=== PATIENT | female | born 1960 | race Caucasian/White ===

== ENCOUNTER 2018-11-26 11:28 | Observation (INO) ==
[2018-11-26] MEDS ORDERED: Isovue-370 500 ML BOTTLE IVP ONE (11:36)
[2018-11-26] MEDS ORDERED: Ketorolac 15 MG/ML VIAL IVP ONE (11:36)
[2018-11-26] MEDS ORDERED: *HR* LORazepam 2 MG/ML VIAL IVP ONE (11:36)
[2018-11-26] MEDS ORDERED: 0.9 % Sodium Chloride 1,000 ML IVC ONE ×2 (11:36→14:23)
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
[2018-11-26 12:15] LABS: Basophils % 0.3 %; Hematocrit 43.4 % (35.3-44.9); Hemoglobin 14.5 g/dL (11.5-15.4); Immature Granulocytes % 0.4 % (0-4); Lymphocytes # 1.2 K/mcL (0.6-4.6); Lymphocytes % 8.3 %; Mean Corpuscular HGB Conc 33.4 g/dL (31.6-35.5); Mean Corpuscular Hemoglobin 29.2 pg (28.0-33.3); Mean Corpuscular Volume 87.3 fL (83.0-100.0); Mean Platelet Volume 10.2 fL (9.4-12.4); Monocytes # 0.3 K/mcL (0.0-1.3); Monocytes % 1.8 %; Neutrophils # 12.7 K/mcL (1.6-8.9); Platelet Count 284 K/mcL (140-400); Red Blood Count 4.97 M/mcL (3.82-4.97); Red Cell Distribution Width 13.6 % (11.5-14.5); Segmented Neutrophils % 89.2 %; White Blood Count 14.2 K/mcL (4.3-11.1)
[2018-11-26] MEDS ORDERED: Ziprasidone 20 MG in Water for inj. (sterile) 1 ML IM ONE (12:17)
[2018-11-26 12:40] LABS: Alanine Aminotransferase 14 Units/L (7-52); Albumin 4.8 g/dL (3.5-5.7); Albumin/Globulin Ratio 1.7 (1.1-2.2); Alkaline Phosphatase 87 Units/L (34-104); Aspartate Amino Transferase 16 Units/L (13-39); BUN/Creatinine Ratio 20 (6-26); Bilirubin,Direct 0.2 mg/dL (0.0-0.2); Bilirubin,Indirect 0.4 mg/dL (0.0-1.2); Bilirubin,Total 0.6 mg/dL (0.3-1.0); Blood Urea Nitrogen 16 mg/dL (6-20); Calcium 10.3 mg/dL (8.6-10.3); Carbon Dioxide 20 mEq/L (23-29); Chloride 107 mEq/L (98-107); Globulin 2.8 g/dL (2.4-3.5); Glucose 138 mg/dL (70-105); Lipase 12 Units/L (11-82); Osmolality,Calculated 299 (280-300); Potassium 3.7 mEq/L (3.5-5.1); Sodium 143 mEq/L (136-145); Total Protein 7.6 g/dL (6.4-8.9); eGFR For African Americans > 60 (> 60); eGFR For Non-African Americans > 60 (> 60)
[2018-11-26] MEDS ORDERED: Famotidine 20 MG/2 ML VIAL IVP ONE (13:29)
[2018-11-26] MEDS ORDERED: Ondansetron 4 MG/2 ML VIAL IVP ONE (13:29)
[2018-11-26 13:48] LABS: INR 1.1; Prothrombin Time 12.6 Seconds (9.4-12.1)
[2018-11-26] MEDS ORDERED: MetroNIDAZOLE 500 MG/100 ML 500 MG/100 ML BAG IVPB ONE (13:59)
[2018-11-26 14:32] LABS: Bilirubin,Urine Negative (Negative); Blood,Urine Moderate (Negative); Clarity,Urine Clear (Clear); Color,Urine Yellow (Yellow); Glucose,Urine (UA) Normal (Normal); Ketones,Urine 40 mg/dL (Negative); Leukocyte Esterase,Urine Negative (Negative); Nitrite,Urine Negative (Negative); PH,Urine 7.5 pH Units (5.0-8.0); Protein,Urine Trace mg/dL (Neg-Trace); Specific Gravity,Urine > 1.030 (1.010-1.025); Urobilinogen,Urine Normal (Normal)
[2018-11-26 14:37] LABS: Bacteria,Urine Many per hpf (None-Few); Hyaline Casts,Urine None Seen per lpf (None-Few); Squamous Epithelial Cell,Urine Many per lpf (None-Few)
[2018-11-26 15:00] LABS: Amphetamine Screen,Urine Negative ng/mL (Cutoff=1000); Barbiturate Screen,Urine Negative ng/mL (Cutoff=200); Benzodiazepines Screen,Urine Negative ng/mL (Cutoff=200); Cannabinoid Screen,Urine Positive ng/mL (Cutoff = 50); Cocaine Screen,Urine Positive ng/mL (Cutoff= 300); Opiate Screen,Urine Negative ng/mL (Cutoff=300); Phencyclidine Screen,Urine Negative ng/mL (Cutoff=25)
[2018-11-26] MEDS ORDERED: Naloxone 0.4 MG/ML INJ IVP PRN (15:03)
[2018-11-26] MEDS ORDERED: Ondansetron ODT 4 MG TAB.RAPDIS SL PRN (15:03)
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
[2018-11-26] MEDS: MetroNIDAZOLE 500 MG/100 ML 500 MG/100 ML BAG IVPB SCH (16:16)
[2018-11-26] MEDS: 0.9 % Sodium Chloride 1,000 ML IVC SCH (16:31)
[2018-11-26] MEDS: Pantoprazole 40 MG VIAL IVP SCH (18:41)
[2018-11-26] MEDS ORDERED: Methyl Salicylate/Menthol 28 GM TUBE TP PRN (21:57)
[2018-11-26] MEDS ORDERED: Methyl Salicylate/Menthol 57 APPL/57 GM TUBE TP PRN (22:04)
[2018-11-27] MEDS: MetroNIDAZOLE 500 MG/100 ML 500 MG/100 ML BAG IVPB SCH ×4 (00:07→23:51)
[2018-11-27 00:45] LABS: Basophils % 0.3 %; Hematocrit 41.3 % (35.3-44.9); Hemoglobin 13.7 g/dL (11.5-15.4); Immature Granulocytes % 0.4 % (0-4); Lymphocytes # 1.9 K/mcL (0.6-4.6); Lymphocytes % 16.3 %; Mean Corpuscular HGB Conc 33.2 g/dL (31.6-35.5); Mean Corpuscular Hemoglobin 28.8 pg (28.0-33.3); Mean Corpuscular Volume 86.9 fL (83.0-100.0); Mean Platelet Volume 10.5 fL (9.4-12.4); Monocytes # 1.1 K/mcL (0.0-1.3); Monocytes % 9.1 %; Neutrophils # 8.6 K/mcL (1.6-8.9); Platelet Count 269 K/mcL (140-400); Red Blood Count 4.75 M/mcL (3.82-4.97); Red Cell Distribution Width 13.8 % (11.5-14.5); Segmented Neutrophils % 73.9 %; White Blood Count 11.6 K/mcL (4.3-11.1)
[2018-11-27 00:56] LABS: BUN/Creatinine Ratio 16 (6-26); Blood Urea Nitrogen 14 mg/dL (6-20); Calcium 8.9 mg/dL (8.6-10.3); Carbon Dioxide 19 mEq/L (23-29); Chloride 106 mEq/L (98-107); Glucose 96 mg/dL (70-105); Magnesium 1.5 mg/dL (1.6-2.6); Osmolality,Calculated 292 (280-300); Potassium 3.6 mEq/L (3.5-5.1); Sodium 141 mEq/L (136-145); eGFR For African Americans > 60 (> 60); eGFR For Non-African Americans > 60 (> 60)
[2018-11-27] MEDS: Pantoprazole 40 MG VIAL IVP SCH ×2 (08:09→17:39)
[2018-11-27] MEDS: 0.9 % Sodium Chloride 1,000 ML IVC SCH (08:10)
[2018-11-27] MEDS ORDERED: Pantoprazole 40 MG VIAL IVP SCH (09:00)
--- NOTE | 2018-11-27 09:38 | Internal Med Progress Note ---
<Dinesh Jauregui - Last Filed: 11/27/18 13:40> Hospitalist Progress Note - Encounter Date of Encounter: 11/27/18 Time of Encounter: 09:50 - Subjective Interval History: Patient feels much better today. Has not had further episodes of nausea or vomiting or hematemesis. Continues to have mild lower quadrant abdominal pain. Feels very hungry. Has been nothing by mouth overnight. - Exam Vitals: Temp Pulse Resp BP Pulse Ox 98.6 F 70 18 136/82 99 11/27/18 11:41 11/27/18 11:41 11/27/18 11:41 11/27/18 11:41 11/27/18 11:41 Exam: General: Patient is alert, no acute distress, oriented x 3 Respiratory: Good respiratory effort. Normal breath sounds. No wheezing or crackles. Cardiovascular: Regular rate and rhythm. s1 and s2 normal No clicks, rubs, gallops, or murmurs. No pedal edema Abdomen: Abdomen is soft, mild lower abdominal tenderness. Bowel sounds are present Musculoskeletal: Spontaneously moving all extremities Skin: warm, dry, intact. Neuro: Alert oriented x 3 normal cranial nerves, no focal deficits - Assessment and Plan (1) Colitis Current Visit: Yes Status: Acute (2) Leukocytosis Current Visit: Yes Status: Acute (3) Coffee ground emesis Current Visit: Yes Status: Acute (4) DVT prophylaxis Current Visit: No Status: Acute - Time Spent with Patient Total time spent is greater than 50% in coordination of care (as documented) at patient's floor/unit and/or counseling patient: Internal Medicine: Result - Labs CBC & Chem 7: 11/27/18 00:25 11/27/18 00:25 Labs: Short CBC 11/27/18 Range/Units 00:25 WBC 11.6 H (4.3-11.1) K/mcL Hgb 13.7 (11.5-15.4) g/dL Hct 41.3 (35.3-44.9) % Plt Count 269 (140-400) K/mcL Neutrophils # 8.6 (1.6-8.9) K/mcL BMP 11/27/18 00:25 Sodium 141 Potassium 3.6 Chloride 106 Carbon Dioxide 19 L BUN 14 Creatinine 0.88 Glucose 96 Calcium 8.9 Urine 11/26/18 Range/Units 14:22 Urine Color Yellow (Yellow) Urine Clarity Clear (Clear) Urine pH 7.5 (5.0-8.0) pH Units Ur Specific [place] > 1.030 H (1.010-1.025) Urine Protein Trace (Neg-Trace) mg/dL Urine Glucose (UA) Normal (Normal) mg/dL - ABG Interpretation ABG results: PT/INR, D-dimer PT 12.6 Seconds (9.4-12.1) H 11/26/18 12:00 - Impressions Impressions Abdomen/Pelvis CT 11/26/18 11:36 IMPRESSION: Mild diffuse colonic wall thickening and mild pericolonic soft tissue stranding suggest colitis which may be infectious or inflammatory in etiology. D/ / 11/26/2018 13:49:05 Keith Saavedra MD / evelyn Interpreting Provider: Keith Saavedra MD Consult Discharge Plan - Plan [facility]errals: [facility] [Primary Care Provider] - - Attending Attestation I saw evaluated and examined this patient and reviewed objective data including labs and my medical decision-making was reviewed with the medical student. I agree with the documented findings, disposition and treatment plan as described except to any changes set forth below. We independently had [id number] contact with the patient. Acute hematemesis: Patient had an episode of acute hematemesis with coffee- ground emesis last night. Improved now. Continue IV PPI. Surgery consult. Started Carafate. Start clear liquid diet as tolerated. If symptoms recur, plan for EGD tomorrow. Acute colitis: Continue Cipro and Flagyl. Moderate risk for complications. <Edson Page R - Last Filed: 11/27/18 15:41> Hospitalist Progress Note - Encounter Date of Encounter: 11/27/18 Time of Encounter: 09:00 - Subjective Interval History: Ms. Barriga is a 57F presenting with nausea, vomiting, and diarrhea which began on Sunday. The abdominal pain is located in the RLQ with no known exacerbating or relieving factors. Has had this discomfort since july and has been taking gabapentin and ibuprofen twice a day. 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 Seen and examined at bedside. Denies pain now. Denies any fever, chills, chest pain, nausea, vomiting, dysuria, constipation, diarrhea, lightheadedness. NPO and Full code. - Exam Vitals: Temp Pulse Resp BP Pulse Ox 98 F 72 18 120/73 99 11/27/18 08:06 11/27/18 08:06 11/27/18 08:06 11/27/18 08:06 11/27/18 08:06 Exam: Gen: AOx3 in no acute distress Eyes: NIR, EOMI, with no scleral icterus or conjunctivitis Throat: Moist mucous membranes, without tonsilar exudate or pharyngeal erythema CV: RRR with no murmurs Resp: CTA in all lung panchal with no wheeze or rhales GI: Soft, non-tender abdomen. Discomfort in the RLQ on palpation that doesn't radiate. No fluid wave present, or organomegaly on palpation. Neuro: CN II-XII intact with no foal deficits. Strength in Maikel UE and LE 4/5 Ext: DP 2/4 maikel. No evidence of LE edema maikel. Derm: No rashes, pallor or cyanosis visualized on exam - Assessment and Plan (1) Colitis Current Visit: Yes Status: Acute Assessment and Plan: -Patient reports Nausea, vomiting, and abdominal pain in the RLQ since July for which she has been taking Ibuprofen twice a day and gabapentin -Associated diarrhea beginning on Sunday. 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 No biliary duct dilatation. Normal gallbladder. Spleen, adrenal glands, and pancreas are normal. Kidneys are symmetric in size and enhancement.No hydronephrosis. Stomach, small bowel, and colon are nondilated. Normal appendix. Mild diffuse colonic wall thickening and mild pericolonic soft tissue stranding. Urinary bladder is unremarkable. Uterus is surgically absent. No free fluid in the pelvis. Mild aortoiliac ather osclerotic calcification. Abdominal aorta is normal in caliber. No abdominal or retroperitoneal adenopathy. No free fluid in the abdomen. Plan: - Gen surgery cosulted - Awaiting GI panel - Mange pain with oxycodone 5 mg SL Q4 Cont 500 mg Metronidazole Q8 and Ciprofloxacin 400 mg IV Q12 - Cont zofran 4 mg IV Q8 (2) Coffee ground emesis Current Visit: Yes Status: Acute Assessment and Plan: -One epidode of vomitting up coffee ground emesis in the ER - Has been taking ibuprofen for past few months for abdominal pain. Denies any drug use despite postivie drug panel. Denies alcohol use. Plan: -Continue protonix -If symptoms persist to the morning will have EGD performed - - (3) Hypomagnesemia Current Visit: Yes Status: Acute Assessment and Plan: -Corrected Magnesium 1.68 - On protonix Plan: -correct and Replace IV (4) Leukocytosis Current Visit: Yes Status: Acute Assessment and Plan: -WBC count 11.6 today down from 14.2 on 11/26 - Likely 2/2 colitis - UA on 11/26 positive for many bacteria, WBC 3-5, moderate blood, and 40 Ketones. However asymptomatic. - Urine sent for culture Plan: - Cont to monitor CBC and vital signs -Cont to monitor kidney function and urine output -Cont ABX as above - Time Spent with Patient Total time spent is greater than 50% in coordination of care (as documented) at patient's floor/unit and/or counseling patient: Plan of Care Discussed with: patient Internal Medicine: Result - Labs CBC & Chem 7: 11/27/18 00:25 11/27/18 00:25 Labs: Short CBC 11/26/18 11/27/18 Range/Units 12:00 00:25 WBC 14.2 H 11.6 H (4.3-11.1) K/mcL Hgb 14.5 13.7 (11.5-15.4) g/dL Hct 43.4 41.3 (35.3-44.9) % Plt Count 284 269 (140-400) K/mcL Neutrophils # 12.7 H 8.6 (1.6-8.9) K/mcL BMP 11/26/18 11/27/18 12:00 00:25 Sodium 143 141 Potassium 3.7 3.6 Chloride 107 106 Carbon Dioxide 20 L 19 L BUN 16 14 Creatinine 0.81 0.88 Glucose 138 H 96 Calcium 10.3 8.9 Liver Function 11/26/18 Range/Units 12:00 Total Bilirubin 0.6 (0.3-1.0) mg/dL Direct Bilirubin 0.2 (0.0-0.2) mg/dL AST 16 (13-39) Units/L ALT 14 (7-52) Units/L Alkaline Phosphatase 87 (34-104) Units/L Albumin 4.8 (3.5-5.7) g/dL Urine 11/26/18 Range/Units 14:22 Urine Color Yellow (Yellow) Urine Clarity Clear (Clear) Urine pH 7.5 (5.0-8.0) pH Units Ur Specific [place] > 1.030 H (1.010-1.025) Urine Protein Trace (Neg-Trace) mg/dL Urine Glucose (UA) Normal (Normal) mg/dL - ABG Interpretation ABG results: PT/INR, D-dimer PT 12.6 Seconds (9.4-12.1) H 11/26/18 12:00 - Impressions Impressions Abdomen/Pelvis CT 11/26/18 11:36 IMPRESSION: Mild diffuse colonic wall thickening and mild pericolonic soft tissue stranding suggest colitis which may be infectious or inflammatory in etiology. D/ / 11/26/2018 13:49:05 Keith Saavedra MD / evelyn Interpreting Provider: Keith Saavedra MD <Dinesh Jauregui - Last Filed: 11/27/18 13:40> (2) Leukocytosis Qualifiers: Leukocytosis type: unspecified Qualified Code(s): D72.829 - Elevated white blood cell count, unspecified <Edson Page - Last Filed: 11/27/18 15:41> (4) Leukocytosis Qualifiers: Leukocytosis type: unspecified Qualified Code(s): D72.829 - Elevated white blood cell count, unspecified
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
[2018-11-27] MEDS ORDERED: Sucralfate 1 GM TABLET PO SCH (16:30)
--- NOTE | 2018-11-27 18:49 | Anesthesia Evaluation PreOp ---
Date of Encounter: 11/27/18 Time of Encounter: 18:47 - Past History Planned Operation: EGD Cardiac History: Denies any Significant Hx Pulmonary History: Smoker (30 years) [employer] History: Other (sciatica) Other Medical History: Other (anxiety/depression) Anesthesia History: No Prior Anesthetic Complications, Past Anesthesia Alcohol Use: none Drug use: cocaine (quit 5 years ago), marijuana Medications and Allergies No Known Home Drugs 11/26/18 [History] Allergy/AdvReac Type Severity Reaction Status Date / Time No Known Allergies Allergy Verified 05/02/18 13:05 - Meds/Allergy Pre-op Review Medications Reviewed: Yes Allergies Reviewed: Yes Beta Blockers on Current Med List: No Anesthesia Results - Labs 11/27/18 00:25 11/27/18 00:25 - Imaging EKG: report reviewed (07/29/2017 SINUS RHYTHM) Anesthesia Exam Vital Signs/O2 Sat/Glucose, Most Recent Temp Pulse Resp BP Pulse Ox 98.2 F 74 15 141/79 97 11/27/18 15:35 11/27/18 15:35 11/27/18 15:35 11/27/18 15:35 11/27/18 15:35 Blood Glucose* 86 Height: 5'5''/1.65m Weight: 140 lbs/63.5 kg NPO (# of Hours): 8 Pain Scale: 0 Pain Scale Used: Numeric (1 - 10) - HEENT Pupil (Motor): EOMI Mallampati: III Teeth: Normal Oral Opening: Greater than 3 - [employer] LOC: Oriented [employer] Motor: Normal RUE, Normal LUE, Normal RLE, Normal LLE, Normal Face [employer] Sensory: Normal: RUE, LUE, RLE, LLE, Face - Cardiac Rhythm: Regular Murmur: None - Pulmonary Breath Sounds: bilateral Clear Respiratory Effort: Symmetrical Anesthesia Assess/Plan ASA Score: 2 Level of consciousness: Cooperative, Oriented, Tranquil Anesthetic Plan: MAC Monitoring Plan: Standard Monitors
[2018-11-27] MEDS ORDERED: *HR* Propofol 200 MG/20 ML VIAL IVP ONE ×2 (19:22→19:33)
[2018-11-27] MEDS ORDERED: Lidocaine -MPF 2% 2 ML VIAL ONE (19:39)
[2018-11-27] MEDS ORDERED: Naloxone 0.4 MG/ML INJ IVP PRN (20:48)
[2018-11-27] MEDS ORDERED: Ondansetron ODT 4 MG TAB.RAPDIS SL PRN (20:48)
[2018-11-27] MEDS: Sucralfate 1 GM TABLET PO SCH (22:10)
[2018-11-27] MEDS: Methyl Salicylate/Menthol 57 APPL/57 GM TUBE TP PRN (22:14)
[2018-11-28] MEDS: Methyl Salicylate/Menthol 57 APPL/57 GM TUBE TP PRN (05:09)
[2018-11-28 05:14] LABS: Basophils % 0.5 %; Eosinophils % 0.4 %; Hematocrit 37.7 % (35.3-44.9); Hemoglobin 12.6 g/dL (11.5-15.4); Immature Granulocytes % 0.2 % (0-4); Lymphocytes % 35.9 %; Mean Corpuscular HGB Conc 33.4 g/dL (31.6-35.5); Mean Corpuscular Hemoglobin 29.8 pg (28.0-33.3); Mean Corpuscular Volume 89.1 fL (83.0-100.0); Mean Platelet Volume 10.8 fL (9.4-12.4); Monocytes # 0.7 K/mcL (0.0-1.3); Monocytes % 8.1 %; Neutrophils # 4.5 K/mcL (1.6-8.9); Platelet Count 223 K/mcL (140-400); Red Blood Count 4.23 M/mcL (3.82-4.97); Red Cell Distribution Width 13.8 % (11.5-14.5); Segmented Neutrophils % 54.9 %; White Blood Count 8.3 K/mcL (4.3-11.1)
[2018-11-28 05:32] LABS: BUN/Creatinine Ratio 19 (6-26); Blood Urea Nitrogen 17 mg/dL (6-20); Calcium 8.4 mg/dL (8.6-10.3); Carbon Dioxide 24 mEq/L (23-29); Chloride 105 mEq/L (98-107); Glucose 80 mg/dL (70-105); Osmolality,Calculated 287 (280-300); Potassium 3.4 mEq/L (3.5-5.1); Sodium 138 mEq/L (136-145); eGFR For African Americans > 60 (> 60); eGFR For Non-African Americans > 60 (> 60)
[2018-11-28] MEDS ORDERED: Pantoprazole 40 MG VIAL IVP SCH (06:00)
[2018-11-28] MEDS: MetroNIDAZOLE 500 MG/100 ML 500 MG/100 ML BAG IVPB SCH (07:41)
[2018-11-28] MEDS: Sucralfate 1 GM TABLET PO SCH ×2 (07:41→12:20)
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
[2018-11-28 11:01] VITALS: BP 158/89
--- NOTE | 2018-11-28 11:40 | Discharge Summary ---
<Queenie Ware E - Last Filed: 11/28/18 11:37> - NOTES TO OUTPATIENT PROVIDER Notes to Outpatient Provider: Patient would like referral to Pain management in [place] for Siatica, [facility] for [facility]opathic manipulation for this as well. Orders not resulted at time of discharge: Pending orders 11/27/18 H. pylori Urease Culture [RM] Routine 11/27/18 19:42 Surgical Pathology [PTH] Routine Date of Encounter: 11/28/18 Time of Encounter: 08:30 - Discharge Diagnosis (1) Colitis Priority: Primary Status: Acute Assessment and Plan: -Patient reports Nausea, vomiting, and abdominal pain in the RLQ since July for which she has been taking Ibuprofen twice a day and gabapentin associated diarrhea which started on Sunday. She has not had any continued diarrhea. 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 No biliary duct dilatation. Normal gallbladder. Spleen, adrenal glands, and pancreas are normal. Kidneys are symmetric in size and enhancement.No hydronephrosis. Stomach, small bowel, and colon are nondilated. Normal appendix. Mild diffuse colonic wall thickening and mild pericolonic soft tissue stranding. Urinary bladder is unremarkable. Uterus is surgically absent. No free fluid in the pelvis. Mild aortoiliac atherosclerotic calcification. Abdominal aorta is normal in caliber. No abdominal or retroperitoneal adenopathy. No free fluid in the abdomen. Patient to follow-up for colonoscopy with GI Continue Flagyl and Cipro orally for colitis (2) Leukocytosis Priority: Secondary Status: Acute Assessment and Plan: White blood cell count 8.3 which has been decreased from 11.6 on admission, likely due to colitis although urinalysis on the third showed positive bacteria, white blood cell count 3-5, moderate blood, 40 ketones. Patient continues to be asymptomatic. This will be cultured as well. This should be covered by patient's antibiotics given for colitis. Qualifiers: Leukocytosis type: unspecified Qualified Code(s): D72.829 - Elevated white blood cell count, unspecified (3) Coffee ground emesis Priority: Primary Status: Acute Assessment and Plan: Upper endoscopy was performed yesterday showing normal esophagus, duodenum, stomach. Biopsies taken for H. pylori. GI follow-up (4) Hypomagnesemia Priority: Secondary Status: Acute Assessment and Plan: Patient's corrected magnesium 1.68 on the fourth, currently on Protonix, corrected replaced magnesium on the fourth Hospital course: Ms. 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 CT Scan on 11/26 shows Liver is normal in morphology. No biliary duct dilatation. Normal gallbladder. Spleen, adrenal glands, and pancreas are normal. Kidneys are symmetric in size and enhancement.No hydronephrosis. Stomach, small bowel, and colon are nondilated. Normal appendix. Mild diffuse colonic wall thickening and mild pericolonic soft tissue stranding. Urinary bladder is unremarkable. Uterus is surgically absent. No free fluid in the pelvis. Mild aortoiliac atherosclerotic calcification. Abdominal aorta is normal in caliber. No abdominal or retroperitoneal adenopathy. No free fluid in the abdomen. had EGD which showed normal gastric mucosa biopsies were taken to rule out H. pylori. Patient will be sent home on Cipro and Flagyl for colitis as well as coverage for possible UTI. Patient to follow-up with her PCP in the next week Discharge discussed with: patient - Time Spent with Patient Total time spent providing and/or coordinating discharge services: - Discharge Medications Prescriptions: New Ciprofloxacin [Cipro] 500 mg PO BID #16 tablet metroNIDAZOLE [Flagyl] 250 mg PO TID #24 tablet Omeprazole Magnesium 20 mg PO DAILY #30 capsule. Home Medications: Ciprofloxacin [Cipro] 500 mg PO BID #16 tablet 11/28/18 [Rx] Omeprazole Magnesium 20 mg PO DAILY #30 capsule. 11/28/18 [Rx] metroNIDAZOLE [Flagyl] 250 mg PO TID #24 tablet 11/28/18 [Rx] Allergies/Adverse Reactions: Allergy/AdvReac Type Severity Reaction Status Date / Time No Known Allergies Allergy Verified 05/02/18 13:05 Date of admission: 11/26/18 15:07 [facility] physician[facility] Consults: 11/26/18 18:35 Consult to Subject Scientific Research [CONS] Routine Reason for Consult: Positive cocaine drug screen 11/27/18 09:07 Consult to Surgery [CONS] Routine Consulting Provider: Acute Care Surgery Reason for Consult: ab pain/n/v 300mL coffee ground emesis. 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 Call Completed: Yes Discharging clinician: Dinesh Jauregui Anticipated date of discharge: 11/28/18 - Constitutional Vitals: Temp Pulse Resp BP Pulse Ox 98.3 F 67 16 158/89 100 11/28/18 11:00 11/28/18 11:00 11/28/18 11:00 11/28/18 11:00 11/28/18 11:00 General appearance: Present: A&O X 1 (Groggy ) Exam: General: AAO 3, answers questions appropriately, no acute distress Head: normocephalic, atraumatic Eyes: NIR, no icterus Cardio: RRR, no murmurs, rubs, or gallops Respiratory: CTAB, no wheezing, rhonchi, rales Abd: normal bowel sounds, no guarding or rigidity Extremities: no pedal edema, pulses equal bilaterally, warm Skin: warm, dry, intact - Patient Status Disposition: Home, Self-Care Condition: Good Functional capacity at discharge: independent ambulation Overall status at discharge: patient is back to baseline - Discharge Instructions [facility] With: [facility] Care Provider[facility] - Additional Instructions: Please follow up with your PCP in 1 week - Diet and Activity Activity: resume usual activities as tolerated Diet: advance to your usual diet <Dinesh Jauregui - Last Filed: 11/28/18 12:07> Orders not resulted at time of discharge: Pending orders 11/27/18 H. pylori Urease Culture [RM] Routine 11/27/18 19:42 Surgical Pathology [PTH] Routine Date of Encounter: 11/28/18 Time of Encounter: 08:32 - Discharge Diagnosis (1) Colitis Status: Acute (2) Leukocytosis Status: Acute Qualifiers: Leukocytosis type: unspecified Qualified Code(s): D72.829 - Elevated white blood cell count, unspecified (3) Coffee ground emesis Status: Acute (4) DVT prophylaxis Status: Acute Hospital course: Ms. Barriga is a 57 year old female - Time Spent with Patient Total time spent providing and/or coordinating discharge services: Date of admission: 11/26/18 15:07 [facility] care physician: [facility] Consults: 11/26/18 18:35 Consult to Subject Scientific Research [CONS] Routine Reason for SW Consult: Positive cocaine drug screen 11/27/18 09:07 Consult to Surgery [CONS] Routine Consulting Provider: Acute Care Surgery Reason for Consult: ab pain/n/v 300mL coffee ground emesis. 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 I agree with the documented findings, disposition and discharge plan as described except to any changes set forth below. We independently had [id number] contact with the patient. Patient with a history of leiomyosarcoma treated with surgery with metastases to GI was hospitalized here and intractable nausea and vomiting with an episode of coffee-ground emesis, and abdominal pain. Diagnosed with colitis based on abdominal CT. Evaluated by surgery and underwent EGD yesterday which did not show any acute issues. Patient is currently doing better tolerating oral diet well and is clinically stable for discharge. She will complete antibiotic co urse. She does have chronic long-standing sciatica. She is advised to avoid taking NSAIDs. Time spent on discharge: 5min
--- NOTE | 2018-11-28 17:26 | AcuteCareSurgery Progress Note ---
Date of Encounter: 11/28/18 Time of Encounter: 08:15 - Assessment and Plan (1) Coffee ground emesis Status: Acute Resolved. EGD was negative. Recommend short course of PPI and f/u with primary care physician. (2) Colitis Status: Acute Resolving. Pt denies any new or worse symptoms. Recommend outpatient colonoscopy in 2-4 weeks. Pt states that [facility] Subjective Patient reports: feels better, pain is less, tolerating a regular diet, flatus, bowel movement, afebrile Objective Vital Signs - Last 8 Hours Temp Pulse Resp BP Pulse Ox 11/28/18 11:00 98.3 F 67 16 158/89 100 Intake and Output 11/28/18 11/28/18 11/28/18 07:59 15:59 23:59 Intake Total 100 / 680 580 / 680 Output Total 100 / 500 400 / 500 Balance 0 / 180 180 / 180 Intake: IV Fluids 100 / 200 100 / 200 Flagyl Premix 500 MG/100 ML 500 100 / 200 100 / 200 mg In 100 ml @ 100 mls/hr IVPB Q8HR [facility]LL[facility] Rx#:[id number] Oral 480 / 480 Output: Urine 100 / 500 400 / 500 Other: Meal Lunch Percent of Meal Consumed 95% # Voids 1 - General physical appearance well developed, no distress, moderate pain (improving) - Eyes PERRL, normal ocular movement - ENT normal mucosa, no congestion, nasal discharge - Neck Neck exam: trachea midline, no venous distension - Respiratory normal respiratory effort, clear to auscultation - Cardiovascular Cardiovascular exam: Present: RRR, JVD - Abdomen Abdomen: Present: bowel sounds present, soft, non tender. Absent: distended - Neurologic CN 2-12 grossly intact, normal coordination - Musculoskeletal normal posture - Psychiatric oriented to time, oriented to person, oriented to place - Labs 11/28/18 04:41 11/28/18 04:41 Diabetes panel 11/28/18 Range/Units 04:41 Sodium 138 (136-145) mEq/L Potassium 3.4 L (3.5-5.1) mEq/L Chloride 105 (98-107) mEq/L Carbon Dioxide 24 (23-29) mEq/L BUN 17 (6-20) mg/dL Creatinine 0.90 (0.60-1.20) mg/dL Glucose 80 (70-105) mg/dL Calcium 8.4 L (8.6-10.3) mg/dL Calcium panel 11/28/18 Range/Units 04:41 Calcium 8.4 L (8.6-10.3) mg/dL Pituitary panel 11/28/18 Range/Units 04:41 Sodium 138 (136-145) mEq/L Potassium 3.4 L (3.5-5.1) mEq/L Chloride 105 (98-107) mEq/L Carbon Dioxide 24 (23-29) mEq/L BUN 17 (6-20) mg/dL Creatinine 0.90 (0.60-1.20) mg/dL Glucose 80 (70-105) mg/dL Calcium 8.4 L (8.6-10.3) mg/dL Adrenal panel 11/28/18 Range/Units 04:41 Sodium 138 (136-145) mEq/L Potassium 3.4 L (3.5-5.1) mEq/L Chloride 105 (98-107) mEq/L Carbon Dioxide 24 (23-29) mEq/L BUN 17 (6-20) mg/dL Creatinine 0.90 (0.60-1.20) mg/dL Glucose 80 (70-105) mg/dL Calcium 8.4 L (8.6-10.3) mg/dL Consult Discharge Plan - Plan Instructions: Ciprofloxacin (By mouth), Metronidazole (By mouth), Omeprazole (By mouth), Acute Nausea and Vomiting (GEN), Acute Diarrhea (GEN), Ulcerative Colitis, Labor Service Representative (GEN) Additional Instructions: Please follow up with your PCP in 1 week Referrals: Shruthi Huang DO [Resident] - 12/02/18 10:20 am (Please take your d/c in formation that was given to you, to this appointment. You will also need your insurance card, photo ID and a list of any medications you are on. If you need to cancel, please give a 24 hour notice. Please arrive 30 minutes early to fill out paperwork. Thank you) [facility] [Primary Care Provider[facility] - () Prescriptions: Ciprofloxacin [Cipro] 500 mg PO BID #16 tablet metroNIDAZOLE [Flagyl] 250 mg PO TID #24 tablet Omeprazole Magnesium 20 mg PO DAILY #30 capsule.
== END 2018-11-28 15:09 | disposition home or self-care (01) ==
LOC: EMEROOARM 11:28 → 3ANU 11:28
PROVIDERS: ADMIT Internal Medicine; ATTEND Internal Medicine
PROC: ENDOEBX (2018-11-27 19:35)

== ENCOUNTER 2019-03-21 23:36 | Observation (INO) ==
[2019-03-21] MEDS ORDERED: Ondansetron 4 MG/2 ML VIAL IVP ONE (23:51)
[2019-03-21] MEDS ORDERED: Pantoprazole 40 MG VIAL IVP ONE (23:51)
[2019-03-21] MEDS ORDERED: *HR* LORazepam 2 MG/ML VIAL IM ONE (23:53)
[2019-03-22 01:00] LABS: Basophils # 0.1 K/mcL (0.0-0.2); Basophils % 0.4 %; Eosinophils % 0.2 %; Hematocrit 41.3 % (35.3-44.9); Hemoglobin 13.9 g/dL (11.5-15.4); Immature Granulocytes % 0.3 % (0-4); Lymphocytes # 2.1 K/mcL (0.6-4.6); Lymphocytes % 17.4 %; Mean Corpuscular HGB Conc 33.7 g/dL (31.6-35.5); Mean Corpuscular Hemoglobin 28.8 pg (28.0-33.3); Mean Corpuscular Volume 85.5 fL (83.0-100.0); Mean Platelet Volume 10.2 fL (9.4-12.4); Monocytes # 0.4 K/mcL (0.0-1.3); Monocytes % 3.4 %; Neutrophils # 9.3 K/mcL (1.6-8.9); Platelet Count 401 K/mcL (140-400); Red Blood Count 4.83 M/mcL (3.82-4.97); Red Cell Distribution Width 13.4 % (11.5-14.5); Segmented Neutrophils % 78.3 %; White Blood Count 11.8 K/mcL (4.3-11.1)
[2019-03-22 01:18] LABS: Alanine Aminotransferase 13 Units/L (7-52); Albumin/Globulin Ratio 1.7 (1.1-2.2); Alkaline Phosphatase 74 Units/L (34-104); Aspartate Amino Transferase 13 Units/L (13-39); BUN/Creatinine Ratio 13 (6-26); Bilirubin,Indirect 0.3 mg/dL (0.0-1.0); Bilirubin,Total 0.3 mg/dL (0.3-1.0); Blood Urea Nitrogen 10 mg/dL (6-20); Calcium 8.7 mg/dL (8.6-10.3); Carbon Dioxide 21 mEq/L (23-29); Chloride 109 mEq/L (98-107); Globulin 2.3 g/dL (2.4-3.5); Glucose 135 mg/dL (70-105); Lipase 32 Units/L (11-82); Osmolality,Calculated 295 (280-300); Potassium 3.4 mEq/L (3.5-5.1); Sodium 142 mEq/L (136-145); Total Protein 6.3 g/dL (6.4-8.9); eGFR For African Americans > 60 (> 60); eGFR For Non-African Americans > 60 (> 60)
[2019-03-22] MEDS ORDERED: Ondansetron 4 MG/2 ML VIAL IVP ONE (01:54)
[2019-03-22] MEDS ORDERED: *HR* LORazepam 2 MG/ML VIAL IVP ONE ×2 (01:54→04:51)
[2019-03-22 02:07] LABS: Bilirubin,Urine Negative (Negative); Blood,Urine Negative (Negative); Clarity,Urine Turbid (Clear); Color,Urine Yellow (Yellow); Glucose,Urine (UA) Normal (Normal); Ketones,Urine Negative (Negative); Leukocyte Esterase,Urine Moderate (Negative); Nitrite,Urine Negative (Negative); PH,Urine 7.5 pH Units (5.0-8.0); Protein,Urine 30 mg/dL (Neg-Trace); Specific Gravity,Urine 1.021 (1.010-1.025); Urobilinogen,Urine Normal (Normal)
[2019-03-22 02:11] LABS: Bacteria,Urine Many per hpf (None-Few); Hyaline Casts,Urine None Seen per lpf (None-Few); RBC,Urine 15-30 per hpf (0-3); Squamous Epithelial Cell,Urine Many per lpf (None-Few); WBC,Urine 30-50 per hpf (0-3)
[2019-03-22 02:21] LABS: Amphetamine Screen,Urine Negative ng/mL (Cutoff=1000); Barbiturate Screen,Urine Negative ng/mL (Cutoff=200); Benzodiazepines Screen,Urine Negative ng/mL (Cutoff=200); Cannabinoid Screen,Urine Positive ng/mL (Cutoff = 50); Cocaine Screen,Urine Negative ng/mL (Cutoff= 300); Opiate Screen,Urine Negative ng/mL (Cutoff=300); Phencyclidine Screen,Urine Negative ng/mL (Cutoff=25)
[2019-03-22] MEDS ORDERED: cefTRIAXone 1,000 MG in Water for inj. (sterile) 10 ML IVP ONE (02:35)
[2019-03-22 03:50] LABS: Ethanol < 10 mg/dL (Less than 10)
[2019-03-22 04:04] LABS: Thyroid Stimulating Hormone 1.214 mcIU/mL (0.340-5.600)
[2019-03-22] MEDS ORDERED: Naloxone 0.4 MG/ML INJ IVP PRN (07:12)
[2019-03-22] MEDS ORDERED: 0.9 % Sodium Chloride 1,000 ML IVC SCH (07:15)
[2019-03-22] MEDS: Haloperidol Lactate 5 MG/ML VIAL IVP PRN ×2 (08:23→11:55)
[2019-03-22] MEDS: Ringers Solution, Lactated 1,000 ML IVC SCH ×2 (08:56→23:48)
[2019-03-22] MEDS ORDERED: Pantoprazole 40 MG VIAL IVP ONE (12:11)
[2019-03-22] MEDS ORDERED: cefTRIAXone 2,000 MG in Water for inj. (sterile) 20 ML IVP SCH (13:00)
[2019-03-22] MEDS ORDERED: *HR* Promethazine 25 MG/ML VIAL IVP PRN (13:48)
[2019-03-22] MEDS ORDERED: Capsaicin 0.025% 60 GM TUBE TP PRN (16:58)
[2019-03-22] MEDS: *HR* Heparin 5,000 UNIT/ML VIAL SQ SCH (18:11)
[2019-03-22 19:05] LABS: BUN/Creatinine Ratio 15 (6-26); Blood Urea Nitrogen 11 mg/dL (6-20); Calcium 9.4 mg/dL (8.6-10.3); Carbon Dioxide 23 mEq/L (23-29); Chloride 103 mEq/L (98-107); Glucose 107 mg/dL (70-105); Osmolality,Calculated 282 (280-300); Potassium 3.5 mEq/L (3.5-5.1); Sodium 136 mEq/L (136-145); eGFR For African Americans > 60 (> 60); eGFR For Non-African Americans > 60 (> 60)
[2019-03-23 02:34] VITALS: BP 130/79
[2019-03-23 04:41] LABS: Basophils % 0.3 %; Eosinophils % 0.5 %; Hematocrit 40.5 % (35.3-44.9); Hemoglobin 13.2 g/dL (11.5-15.4); Immature Granulocytes % 0.2 % (0-4); Lymphocytes # 3.3 K/mcL (0.6-4.6); Lymphocytes % 37.6 %; Mean Corpuscular HGB Conc 32.6 g/dL (31.6-35.5); Mean Corpuscular Hemoglobin 29.3 pg (28.0-33.3); Mean Platelet Volume 9.9 fL (9.4-12.4); Monocytes # 0.7 K/mcL (0.0-1.3); Monocytes % 8.3 %; Neutrophils # 4.6 K/mcL (1.6-8.9); Platelet Count 312 K/mcL (140-400); Red Cell Distribution Width 13.7 % (11.5-14.5); Segmented Neutrophils % 53.1 %; White Blood Count 8.7 K/mcL (4.3-11.1)
[2019-03-23 05:00] LABS: BUN/Creatinine Ratio 12 (6-26); Blood Urea Nitrogen 11 mg/dL (6-20); Calcium 8.6 mg/dL (8.6-10.3); Carbon Dioxide 26 mEq/L (23-29); Chloride 103 mEq/L (98-107); Glucose 105 mg/dL (70-105); Osmolality,Calculated 280 (280-300); Potassium 3.6 mEq/L (3.5-5.1); Sodium 135 mEq/L (136-145); eGFR For African Americans > 60 (> 60); eGFR For Non-African Americans > 60 (> 60)
[2019-03-23] MEDS: *HR* Heparin 5,000 UNIT/ML VIAL SQ SCH (05:42)
[2019-03-23] MEDS ORDERED: Pantoprazole 40 MG VIAL IVP SCH (09:00)
[2019-03-23] MEDS ORDERED: BuPROPion XL (24 HR) 150 MG TABLET PO SCH (09:00)
[2019-03-23] MEDS: Gabapentin 300 MG CAPSULE PO SCH ×2 (10:11→10:13)
== END 2019-03-23 11:13 | disposition home or self-care (01) ==
LOC: EMEROOARM 23:36 → 3ANU 23:36 → SUATTDRO 03-22 06:50 → 3ANU 03-22 08:02
PROVIDERS: ADMIT Family Medicine; ATTEND Internal Medicine